=== PATIENT | male | born 1950 | race African-American/Black ===

== ENCOUNTER 2021-08-12 21:28 | Emergency (ER) | payer OTHER, SELFPAY ==
--- NOTE | ~2021-08-12 | XR_ITS ---
EXAMINATION: XR humerus RT DATE: 08/12/2021 22:08 INDICATION: Right humerus injury and pain. TECHNIQUE: 2 views of right humerus were obtained. COMPARISON: None. FINDINGS: Bone alignment is normal. No fracture. There is mild osteoarthritis of glenohumeral joint a nd the elbow joint. There are enthesophytes at the medial and lateral humeral epicondyles. IMPRESSION: 1. Mild polyarticular osteoarthritis. Reviewed, dictated and finalized at location A.
--- NOTE | ~2021-08-12 | XR_ITS ---
XR knee LT min 4V 08/13/2021 08:01 INDICATION: Left knee pain after fall PROCEDURE: 4 views left knee COMPARISON: No prior studies for comparison. FINDINGS: Fracture, dislocation or subluxation is not identified. No significant joint effusion. The soft tissues appear within normal limits. No foreign bodies are identified. IMPRESSION: 1: NO ACUTE BONE OR JOINT ABNORMALITY IDENTIFIED. Reviewed, dictated and finalized at location A.
--- NOTE | ~2021-08-12 | CT_ITS ---
EXAMINATION: CT facial & cervical spine wo DATE: 08/13/2021 01:15 INDICATION: Status post fall. Facial and neck pain. TECHNIQUE: Computed tomography (CT) of the maxillofacial region and cervical spine was performed with out intravenous contrast. The dose-length product was 551.72 mGy-cm. Automated exposure control and i terative reconstruction technique were employed. COMPARISON: None FINDINGS: MAXILLOFACIAL CT: No acute fracture.There is mild mucosal thickening of the maxillary sinuses. Mandible intact. Temporo mandibular joints are symmetric. There is a left nasal fracture, likely chronic. Mastoids are pneumat ized. 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 Straightening of normal cervical lordosis. No acute fracture or traumatic malalignment. There is a dvanced multilevel uncinate hypertrophy. Lung apices are normal. There is thyroid enlargement with he terogeneous appearance. Consider correlation with ultrasound. IMPRESSION: 1. No acute abnormality of the facial bones or cervical spine. Reviewed, dictated and finalized at location A.
--- NOTE | ~2021-08-12 | XR_ITS ---
EXAMINATION: XR forearm RT 2V DATE: 08/12/2021 22:07 INDICATION: Right forearm injury and pain. TECHNIQUE: 2 views of right forearm were obtained. COMPARISON: None. FINDINGS: Bone alignment is normal. No fracture. There is mild elbow joint osteoarthritis. No elbow j oint effusion. There are enthesophytes at the medial and lateral humeral epicondyles. IMPRESSION: 1. Mild elbow joint osteoarthritis. Reviewed, dictated and finalized at location A.
--- NOTE | ~2021-08-12 | XR_ITS ---
EXAMINATION: XR chest 1V DATE: 08/12/2021 22:09 INDICATION: Chest injury. TECHNIQUE: A single frontal view of the chest was obtained. COMPARISON: Chest 2 views 03/05/2017, CT cervical spine 09/02/2014 FINDINGS: There is mild atelectasis at left lung base. No pleural effusion or pneumothorax. The heart size is normal. 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 IMPRESSION: 1. Mild atelectasis at left lung base. 2. Intrathoracic goiter. Reviewed, dictated and finalized at location A.
--- NOTE | ~2021-08-12 | XR_ITS ---
XR elbow RT min 3V 08/13/2021 01:22 Indication: Right elbow pain after fall Procedure: 4 views right elbow Comparison: 08/12/2021 Findings: There is mild osteoarthritis of the right elbow. No significant joint effusion. No fracture or traumatic malalignment. Radial head appears to be intact. No foreign bodies. Impression: 1: No acute fracture. Reviewed, dictated and finalized at location A. Impression: 1: No acute fracture.
--- NOTE | ~2021-08-12 | XR_ITS ---
XR hip LT 2V w AP pelvis 08/13/2021 08:01 Indication: Left hip pain Procedure: 3 views left hip Comparison: No prior studies for comparison. Findings: There is moderate osteoarthritis of the left hip. No fracture, subluxation or dislocation. Pelvic rings are intact. Sacral foramen are symmetric. No significant soft tissue abnormality. No for eign bodies. Impression: 1: No acute fracture. Reviewed, dictated and finalized at location A. Impression: 1: No acute fracture.
--- NOTE | ~2021-08-12 | CT_ITS ---
EXAMINATION: CT brain wo con DATE: 08/13/2021 01:15 INDICATION: Headache after recent fall TECHNIQUE: Computed tomography (CT) of the head was performed without intravenous contrast. The dose- length product was 681.00 mGy-cm. Automated exposure control and iterative reconstruction technique w ere employed. COMPARISON: CT dated 09/02/2014 FINDINGS: Generalized atrophy. There are scattered mild periventricular and subcortical white matter changes, most likely related to small vessel ischemic disease (microangiopathy). No ventriculomegaly or midline shift. There is intracranial atherosclerosis. Basilar cisterns are patent. Paranasal sinus es and mastoids are pneumatized. No depressed skull fractures. IMPRESSION: 1. No acute intracranial abnormality. 2: Chronic age-related findings. Reviewed, dictated and finalized at location A.
[2021-08-12 21:31] VITALS: BP 128/83; PULSE 84; RESP 18; TEMP 36.1; O2SAT 98
[2021-08-13] VITALS (40 sets, daily range): BP systolic 120–152; BP diastolic 70–93; PULSE 79–103; RESP 17–31; O2SAT 93–100
--- NOTE | 2021-08-13 01:39 | ED.FALL ---
HPI - Fall General Chief Complaint: Fall Stated Complaint: fall of scaffolding approx. 10 feet. Time Seen by Provider: 08/13/21 00:23 Source: patient and RN notes reviewed Mode of arrival: ambulatory Limitations: no limitations History of Present Illness HPI Narrative: This is a 71 year old male who presents for evaluation facial injury and right arm injury s/p fall. He states prior to arrival to ER he fell off 10 ft scafolding . He states it gave way and it caused him to hit his jaw and mouth metal rods. He landed on his right arm and hit his face on the ground. He reports having 2 chin laceration and loose teeth in his lower jaw. He denies headache, nausea, dizziness, neck pain, chest pain , back pain or abdominal pain. His last tetanus was 5 years ago. Related Data Allergies Allergy/AdvReac Type Severity Reaction Status Date / Time iodine Allergy Unknown Swelling Verified 08/13/21 00:46 of Lip/Tongue/Throat shrimp Allergy Swelling Verified 08/13/21 00:46 of Lip/Tongue/Throat Review of Systems Review of Systems: All systems reviewed & are unremarkable except as noted in HPI and below PMFSH Past Medical History Medical History (Updated 08/14/21 @ 00:00 by Reji Pascual) Hyperlipidemia Hypertension Surgical History Surgical History (Updated 08/13/21 @ 01:43 by Rola Andres MD) Hx of tonsillectomy Social History Social History (Updated 08/13/21 @ 01:43 by Rola Andres MD) Smoking status: Former smoker Substance use type: marijuana Exam Const: General: no acute distress and alert Orientation/consciousness: patient oriented x3 HENMT: Ears: TM's normal bilaterally Teeth and gingiva: abnormal tooth and associated gingiva (broken teeth 8, 9) Throat: uvula midline Eyes: Pupils: Equal, round and reactive pupils present EOM: EOMs intact bilaterally Neck: Neck: normal visual inspection Chest: Chest palpation & inspection: normal inspection of the chest Resp: Effort & Inspection: normal respiratory effort and no retractions Auscultation: clear to auscultation bilaterally Cardio: Rate: regular rate Rhythm: regular rhythm Heart sounds: no murmurs GI: GI Palp: Yes Soft to palpation, No Tenderness to palpation present (GI) and No Guarding due to palpation present (GI) Auscultation: normal bowel sounds Back/Spine/Pelvis: Back: no CVA tenderness Cervical Spine: No cervical muscular tenderness and No Cervical spine tenderness Thoracic/Lumbar Spine: No thoracic spinal tenderness Skin: Other: 2 chin laceration, - laceration A at 4.5 cm and laceration B 3.5 cm Neuro: General: patient oriented x3, moves all extremities and CN's II-XI intact bilaterally Extrem: Other: right lateral forearm TTP and swelling, no elbow swelling or tenderon, neurovascularly intact, strong radially pulse bilaterally Psych: Mental Status: mental status grossly normal Affect: normal affect Course Reevaluation(s) Reevaluation #1: Patient started complaining about knee pain during his suturing. Xrays were negative for fracture. He was able to ambulate around nursing station without difficulty. I discussed wound care of his sutures and wounds. Date: 08/13/21 Time: 08:42 Vital Signs Vital signs: Vital Signs Temperature 97.0 F L 08/12/21 21:31 Pulse Rate 84 08/12/21 21:31 Respiratory Rate 18 08/12/21 21:31 Blood Pressure 128/83 08/12/21 21:31 Pulse Oximetry 98 08/12/21 21:31 Temperature 97.0 F L 08/12/21 21:31 Pulse Rate 90 08/13/21 09:10 Respiratory Rate 17 08/13/21 09:10 Blood Pressure 152/84 H 08/13/21 09:10 Pulse Oximetry 97 08/13/21 09:10 Procedures Laceration Laceration 1: Date: 08/13/21 Time: 06:30 Site: face Size (cm): 4.5 Description: linear and clean Depth: simple, single layer Local Anesthetic: lidocaine 1% and with epi Amount of anesthesia used (mL): 3
[2021-08-13] MEDS: MORPHINE SULFATE (*CRX) 4 MG/ML INJ IV PUSH (02:02)
[2021-08-13] MEDS: ONDANSETRON INJ 4 MG/2 ML VIAL IV PUSH (02:02)
[2021-08-13] MEDS: HYDROcodone/acetaminophen (*CRX) 5-325 MG TABLET 1 TAB PO (05:47)
[2021-08-13] MEDS: IBUPROFEN 400 MG TABLET 800 MG PO (05:48)
== END 2021-08-13 09:11 | disposition home or self-care (01) ==
PROVIDERS: Emergency Provider General Practice
DX: S01.81XA Laceration without foreign body of other part of head, initial encounter (principal); S02.5XXA Fracture of tooth (traumatic), initial encounter for closed fracture; S50.01XA Contusion of right elbow, initial encounter; M25.562 Pain in left knee; E78.5 Hyperlipidemia, unspecified; I10 Essential (primary) hypertension; Z87.891 Personal history of nicotine dependence; M19.021 Primary osteoarthritis, right elbow; E04.8 Other specified nontoxic goiter; M19.011 Primary osteoarthritis, right shoulder; W12.XXXA Fall on and from scaffolding, initial encounter
CPT/HCPCS: 12015; 70450; 70486; 71045; 72125; 73060; 73080; 73090; 73502; 73564; 96365; 96375; 99284; A9270; J0690; J2270; J2405